=== PATIENT | male | born 1985 | race Two or more races ===

== ENCOUNTER 2024-02-03 13:30 | Inpatient (IN) | payer OTHER ==
[~2024-02-03] VITALS: Ht 172.7 cm; Wt 112.5 kg
[2024-02-03 16:19] LABS: Basophils # (auto) 0.1 10 ^3/uL (0-0.2); Basophils % (auto) 1.1 % (0.0-2.0); Eosinophils # (auto) 0.1 10 ^3/uL (0-0.8); Hematocrit 43.3 % (41.0-53.0); Hemoglobin 13.9 g/dL (13.5-17.5); Lymphocytes # (auto) 2.4 10 ^3/uL (0.4-5.4); Lymphocytes % (auto) 20.8 % (10.0-50.0); Mean Corpuscular Hemoglobin 27.9 pg (28.0-32.0); Mean Corpuscular Hgb Conc. 32.1 g/dL (32.0-36.0); Mean Corpuscular Volume 86.9 fL (80.0-100.0); Monocytes # (auto) 0.6 10 ^3/uL (0-1.3); Monocytes % (auto) 5.3 % (0.0-12.0); Neutrophils # (auto) 8.2 10 ^3/uL (1.6-8.6); Neutrophils % (auto) 71.8 % (37.0-80.0); Nucleated Red Blood Cells % 0.1 %; Red Blood Cells 4.98 10^6/uL (4.5-5.90); White Blood Cell 11.4 10^3/uL (4.4-10.8)
[2024-02-03 17:32] LABS: Alanine Aminotransferase 34 U/L (7-40); Albumin 4.3 g/dL (3.2-4.8); Alkaline Phosphatase 84 U/L (46-116); Anion Gap 13 (5-15); Aspartate Aminotransferase 28 U/L (13-40); BUN/Creatinine Ratio 26.8 (10.0-20.0); Bilirubin, Total 0.5 mg/dL (0.2-1.0); Blood Urea Nitrogen 15 mg/dL (9-23); Calcium 9.1 mg/dL (8.7-10.4); Carbon Dioxide 24 mmol/L (20-30); Chloride 110 mmol/L (98-107); Creatine Kinase IFCC 25 U/L (46-171); Glucose 94 mg/dL (74-106); Lipase 27 U/L (12-53); Magnesium 2.2 mg/dL (1.6-2.6); Potassium 4.4 mmol/L (3.5-5.1); Sodium 147 mmol/L (136-145); Total Protein 7.8 g/dL (5.7-8.2)
[2024-02-03 19:44] LABS: Erythrocyte Sedimentation Rate 52 mm/hr (0-20)
[2024-02-03] MEDS ORDERED: ACETAMINOPHEN 325 MG TAB PO PRN (20:15)
[2024-02-03] MEDS ORDERED: ONDANSETRON HCL 4 MG/2 ML VIAL IV PRN (20:15)
[2024-02-03] MEDS ORDERED: HYDROmorphone HCL 2 MG/ML VL/or syr IV PRN (20:15)
[2024-02-03] MEDS ORDERED: DOCUSATE SOD 100 MG CAP PO PRN (20:15)
[2024-02-03] MEDS ORDERED: HYDROcodone-ACET 5/325MG TAB PO PRN (20:15)
[2024-02-03] MEDS: methylPREDNISolone SOD SUCC 125 MG/2 ML VL IV ONE (21:30)
[2024-02-04] VITALS (11 sets, daily range): BP systolic 102–124; BP diastolic 53–82; PULSE 103–118; RESP 16–20; TEMP 98.1–100.1; O2SAT 90–95
[2024-02-04] MEDS: methylPREDNISolone SOD SUCC 125 MG/2 ML VL IV ONE (00:57)
[2024-02-04] MEDS: LACTATED RINGER'S 1,000 ML IV SCH (00:57)
[2024-02-04] MEDS: SODIUM CHLOR 0.9% PF (SALINE LOCK) 10ML VIAL/SYR IV SCH (00:57)
[2024-02-04 07:23] LABS: COVID19 ANTIGEN SOFIA FIA NEGATIVE (NEGATIVE)
[2024-02-04] MEDS: ENOXAPARIN SOD 40 MG/0.4 ML SYRINGE SC SCH (08:27)
[2024-02-04] MEDS: METOPROLOL SUCCINATE XL 50 MG TAB PO ONE (13:34)
[2024-02-04] MEDS ORDERED: LORazepam 2MG/ML-1ML VIAL IV PRN (23:15)
[2024-02-05] VITALS (7 sets, daily range): BP systolic 104–132; BP diastolic 53–86; PULSE 92–105; RESP 18–20; TEMP 98.1–100.5; O2SAT 90–97
[2024-02-05] MEDS: METOPROLOL SUCCINATE XL 50 MG TAB PO SCH (09:41)
[2024-02-05] MEDS ORDERED: METOPROLOL TARTRATE 25 MG TAB PO SCH (10:00)
[2024-02-05 10:06] LABS: Urine Bacteria None Seen /hpf (None Seen)
[2024-02-05 10:21] LABS: Urine Blood Negative /uL (Negative); Urine Clarity Clear (Clear); Urine Color Yellow (Yellow); Urine Mucus FEW (None Seen); Urine Protein, UAD Negative (Negative); Urine Specific Gravity 1.022 (1.001-1.035); Urine Urobilinogen Normal (Negative); Urine WBC 1 /hpf (0 - 3)
[2024-02-05] MEDS ORDERED: VANCOMYCIN PER PHARMACY 0 MG IV SCH (12:15)
[2024-02-05] MEDS: cefTRIAXone 2GM/50ML D5W 50 ML IV ONE (14:30)
[2024-02-05] MEDS: VANCOMYCIN 1GM/200ML 200 ML IV SCH (15:46)
[2024-02-06] VITALS (8 sets, daily range): BP systolic 96–134; BP diastolic 53–85; PULSE 85–98; RESP 17–20; TEMP 97.5–98.5; O2SAT 91–97
[2024-02-06] MEDS: VANCOMYCIN 1GM/200ML 200 ML IV SCH (00:14)
[2024-02-06 06:02] LABS: Basophils # (auto) 0.1 10 ^3/uL (0-0.2); Basophils % (auto) 0.6 % (0.0-2.0); Eosinophils # (auto) 0.1 10 ^3/uL (0-0.8); Eosinophils % (auto) 1.3 % (0.0-7.0); Hematocrit 38.5 % (41.0-53.0); Hemoglobin 12.7 g/dL (13.5-17.5); Lymphocytes # (auto) 1.6 10 ^3/uL (0.4-5.4); Lymphocytes % (auto) 18.1 % (10.0-50.0); Mean Corpuscular Hemoglobin 28.4 pg (28.0-32.0); Mean Corpuscular Hgb Conc. 33.1 g/dL (32.0-36.0); Mean Corpuscular Volume 85.9 fL (80.0-100.0); Monocytes # (auto) 0.4 10 ^3/uL (0-1.3); Monocytes % (auto) 4.7 % (0.0-12.0); Neutrophils # (auto) 6.8 10 ^3/uL (1.6-8.6); Neutrophils % (auto) 75.3 % (37.0-80.0); Red Blood Cells 4.48 10^6/uL (4.5-5.90); Red Cell Distribution Width 17.9 % (11.8-14.3)
[2024-02-06] MEDS: cefTRIAXone 2GM/50ML D5W 50 ML IV SCH (09:06)
[2024-02-07] VITALS (8 sets, daily range): BP systolic 110–128; BP diastolic 61–83; PULSE 75–102; RESP 16–22; TEMP 98.4–99.4; O2SAT 91–97
[2024-02-07] MEDS ORDERED: CEPH500C PO (12:11)
== END 2024-02-07 20:00 | disposition home health service (06) | DRG 58 ==
LOC: ER 13:30 → EDBD 13:30 → TELE 20:07 → TELE-EAST 20:07
PROVIDERS: ADMIT Internal Medicine; ATTEND Internal Medicine
DX: G25.3 Myoclonus (principal); G93.41 Metabolic encephalopathy; E66.9 Obesity, unspecified; F79 Unspecified intellectual disabilities; Z20.822 Contact with and (suspected) exposure to COVID-19; R29.818 Other symptoms and signs involving the nervous system; Z83.3 Family history of diabetes mellitus; Z68.33 Body mass index [BMI] 33.0-33.9, adult
CPT/HCPCS: 36415; 70450; 70551; 71045; 72141; 80053; 80202; 81001; 82140; 82550; 82565; 83605; 83690; 83735; 83880; 84484; 85025; 85652; 86141; 87426; 97110; 97116; 97163; 97530; G0378